=== PATIENT | male | born 1980 | race Caucasian/White ===

== ENCOUNTER 2018-08-03 07:22 | Day surgery (SDC) | payer OTHER ==
[2018-08-02 15:32] VITALS: BMI 29.2
--- NOTE | 2018-08-03 09:16 | HP ---
History & Physical Update - Physical Physical: No Change - Assessment Assessment: No Change (Pilonidal sinus with infection.) - Plan Plan: No Change (Excision of pilonidal sinus and infection.)
[2018-08-03] MEDS ORDERED: MIDAZOLAM HCL 2 MG/2 ML SINGLE DOSE VIAL ONE (09:42)
[2018-08-03] MEDS ORDERED: PROPOFOL 20 ML ONE (09:51)
[2018-08-03] MEDS ORDERED: fentaNYL CITRATE 250 MCG/5 ML VIAL ONE (09:52)
[2018-08-03] MEDS ORDERED: ROCURONIUM BROMIDE 50 MG/5 ML VIAL ONE (09:52)
[2018-08-03] MEDS ORDERED: BUPIVACAINE HCL/PF 0.5% (5MG/ML) 10 ML VIAL ONE (09:53)
[2018-08-03] MEDS ORDERED: BENZOIN TINCTURE SWABSTICK TP ONE (09:53)
[2018-08-03] MEDS ORDERED: ceFAZolin SODIUM 1 GM VIAL IVPB ONE (10:11)
[2018-08-03] MEDS ORDERED: METHYLENE BLUE 1% 10 MG/1 ML VIAL NR ONE (10:29)
[2018-08-03] MEDS ORDERED: BUPIVACAINE HCL/PF (5 MG/ML) 30 ML VIAL IJ ONE ×2 (10:52)
[2018-08-03] MEDS ORDERED: GLYCOPYRROLATE 0.2 MG/1 ML VIAL ONE (11:00)
[2018-08-03] MEDS ORDERED: NEOSTIGMINE METHYLSULFATE 0.5 MG/ML - 10 ML MDV ONE (11:00)
--- NOTE | 2018-08-03 11:12 | OP ---
Operative Note - Note: Operative Date: 08/03/18 Pre-Operative Diagnosis: Pilonidal sinus with recurrent abscess. Operation: Excision of pilonidal sinus, sinogram with methylene blue. Findings: Sinus tract from the skin at the bottom of the buttock towards the coccyx. Post-Operative Diagnosis: Same as Pre-op Surgeon: Larisa Diamond Anesthesia: General, Local Specimens Removed: Pilonidal sinus. Estimated Blood Loss (mls): 5 Operative Report Dictated: Yes
[2018-08-03] MEDS ORDERED: oxyCODONE HCL 5 MG TABLET PO PRN (11:22)
[2018-08-03] MEDS ORDERED: PROMETHAZINE HCL 25 MG/1 ML VIAL IVPB PRN (11:22)
[2018-08-03] MEDS ORDERED: ONDANSETRON 4 MG/2 ML VIAL IVPUSH PRN (11:22)
[2018-08-03] MEDS ORDERED: ONDANSETRON 4 MG/2 ML VIAL ONE ×2 (11:49→12:42)
[2018-08-03] MEDS ORDERED: ONDANSETRON 4 MG/2 ML VIAL IVPB ONE (12:45)
[2018-08-03 14:00] VITALS: BP 102/48; PULSE 92; TEMP 98
--- NOTE | 2018-08-04 07:46 | OP ---
DATE OF OPERATION: 08/03/2018 PREOPERATIVE DIAGNOSIS: Pilonidal sinus with recurrent abscess. POSTOPERATIVE DIAGNOSIS: Pilonidal sinus complicated, with recurrent abscess. OPERATIVE PROCEDURE: Excision of pilonidal sinus. SURGEON: Brittnee Diamond MD ANESTHESIA: General anesthesia. OPERATIVE DESCRIPTION: This 38-year-old man with recurrent draining pilonidal abscess with chronic persistent sinus. Patient was brought in for excision of sinus. Consent was obtained. Risks, benefits, and complications were discussed with the patient. Patient was given general anesthesia, placed prone on the operating table with the hip flexed. Both buttocks and the perineum were painted with Betadine and draped. The buttocks were pulled apart with tapes to expose the fold between the buttocks. Once this was done, the tract was identified. This was probed with an Angiocath and dye with methylene blue was injected into the tract. Once this was done, an elliptical incision was made around the tract, and the apex of the ellipse of pyramid towards the head and the smooth curved portion just below the sinus opening. Incision was carried through the skin, subcutaneous tissue, deep fascia, staying away from the sinus tract identified with the blue color. It was carried all way down towards the coccyx on the bone. This was completely excised and sent to Pathology. The wound was then thoroughly irrigated with normal saline. There was no contamination, no purulent material was in the tract. The wound appeared to be clean. The fascia was then mobilized on either side lateral to the incision. The retraction of the buttocks was relieved. After achieving hemostasis and thorough irrigation of the wound, the fascia was approximated with mild interrupted 3-0 Vicryl sutures. Subcutaneous fat was similarly mobilized and subcutaneous fat was brought together with mild interrupted 3-0 Vicryl sutures. The subdermal layer was also approximated with interrupted 4-0 Biosyn sutures. Skin was left open and approximated with Steri-Strips. Sponge count, instrument count were correct. Estimated blood loss was 5 mL. Sterile dressing was placed. Marcaine 0.5% was injected into the wound. Patient had been given 2 g of Ancef prior to the procedure and time-out had been called. Patient tolerated the procedure well, was extubated, and sent to the recovery room in satisfactory and stable condition. Mann [id number] MTDD
--- NOTE | 2018-08-07 13:49 | PATH ---
Surgical Pathology Report Patient Name: MARY HERNANDEZ Med. Rec. #: [id number] /Age/Gender: 1980 (Age: 38) / M Account: [id number] Location: [facility] SURGICAL Taken: 08/03/2018 Received: 08/03/2018 Reported: 08/07/2018 Physicians: Brittnee Diamond M.D. Specimen(s) Received PILONIDAL SINUS Clinical History Pilonidal sinus complicated Final Diagnosis PILONIDAL SINUS, EXCISION: SEGMENT OF SKIN SHOWING ACUTE AND CHRONIC INFLAMMATION, HISTIOCYTIC REACTION WITH MULTINUCLEATED GIANT CELLS, IN ASSOCIATION WITH HAIR AND SQUAMOUS LINED CYSTS, CONSISTENT WITH PILONIDAL CYST. Electronically Signed Samantha Anderson M.D. Gross Description Received in formalin labeled "pilonidal sinus," is a 3.5 x 1.2 cm pérez, elliptical, unoriented portion of skin excised to depth of 3.7 cm. The epidermal surface displays a central, linear invagination. Sectioning reveals a possible sinus tract. Engine Turner sections are submitted in 2 cassettes. /08/03/2018 saudi/08/03/2018
== END 2018-08-03 13:50 | disposition home or self-care (01) ==
LOC: JASU-SURG 07:22
PROVIDERS: ATTEND Specialist
PROC: 0JB90ZZ Excision of Buttock Subcutaneous Tissue and Fascia, Open Approach (ICD-10-PCS; principal; 2018-08-03 09:30)
DX: L05.01 Pilonidal cyst with abscess (principal)
CPT/HCPCS: 88304-TC; 94760